=== PATIENT | female | born 1995 | race African-American/Black ===

== ENCOUNTER 2021-06-15 05:19 | Emergency (ER) | payer BC, MEDICAID ==
[~2021-06-15] VITALS: Ht 170.2 cm; Wt 69.4 kg
[2021-06-15 06:33] LABS: Urine Bacteria FEW /hpf (None Seen); Urine Blood 2+ /uL (Negative); Urine Mucus FEW (None Seen); Urine Specific Gravity 1.014 (1.001-1.035); Urine WBC 5 /hpf (0 - 5)
[2021-06-15 07:08] LABS: Basophils # (auto) 0 10 ^3/uL (0-0.2); Basophils % (auto) 0.9 % (0.0-2.0); Eosinophils # (auto) 0.1 10 ^3/uL (0-0.8); Lymphocytes # (auto) 1.6 10 ^3/uL (0.4-5.4); Mean Corpuscular Hemoglobin 25.6 pg (28.0-32.0); Monocytes # (auto) 0.4 10 ^3/uL (0-1.3)
[2021-06-15 07:10] LABS: Eosinophils % (auto) 1.4 % (0.0-7.0); Hematocrit 33.2 % (36.0-46.0); Lymphocytes % (auto) 32.3 % (10.0-50.0); Mean Corpuscular Hgb Conc. 33.2 g/dL (32.0-36.0); Monocytes % (auto) 7.7 % (0.0-12.0); Neutrophils # (auto) 2.9 10 ^3/uL (1.6-8.6); Neutrophils % (auto) 57.7 % (37.0-80.0); Nucleated Red Blood Cells % 0.1 %; Red Blood Cells 4.32 10^6/uL (4.0-5.20); Red Cell Distribution Width 17.6 % (11.8-14.3)
[2021-06-15 07:32] LABS: Albumin 3.3 g/dL (3.4-5.0); Calcium 9.1 mg/dL (8.5-10.1); Potassium 3.6 mmol/L (3.5-5.1)
[2021-06-15 07:38] LABS: BUN/Creatinine Ratio 20.5; Bilirubin, Total 0.2 mg/dL (0.2-1.0); Total Protein 7.2 g/dL (6.4-8.2)
[2021-06-15 07:57] VITALS: BP 115/63
== END 2021-06-15 07:55 | disposition home or self-care (01) ==
LOC: ER 05:19
DX: O20.8 Other hemorrhage in early pregnancy (principal); Z86.2 Personal history of diseases of the blood and blood-forming organs and certain disorders involving the immune mechanism; Z3A.16 16 weeks gestation of pregnancy
CPT/HCPCS: 36415; 76805; 80053; 81001; 84702; 85025

== ENCOUNTER 2021-09-13 08:45 | Observation (INO) | payer MEDICAID ==
[2021-09-13] MEDS ORDERED: PREN-96 PO (09:52)
== END 2021-09-13 10:37 | disposition home or self-care (01) ==
LOC: LDRP 08:45
PROVIDERS: ADMIT Obstetrics & Gynecology Obstetrics; ATTEND Obstetrics & Gynecology Obstetrics
DX: O26.893 Other specified pregnancy related conditions, third trimester (principal); R10.31 Right lower quadrant pain; Z3A.29 29 weeks gestation of pregnancy
CPT/HCPCS: 59025; 81002; 94760; G0378; G0379

== ENCOUNTER 2021-10-01 11:05 | Observation (INO) | payer MEDICAID ==
[~2021-10-01 11:05] MED LIST: PREN-96 PO
== END 2021-10-01 11:48 | disposition home or self-care (01) ==
LOC: LDRP 11:05
PROVIDERS: ADMIT Obstetrics & Gynecology; ATTEND Obstetrics & Gynecology
DX: O23.43 Unspecified infection of urinary tract in pregnancy, third trimester (principal); O26.893 Other specified pregnancy related conditions, third trimester; N89.8 Other specified noninflammatory disorders of vagina; Z3A.31 31 weeks gestation of pregnancy
CPT/HCPCS: 59025; 81002; 94760; G0378; G0379

== ENCOUNTER 2021-11-07 01:28 | Observation (INO) | payer MEDICAID ==
[~2021-11-07] VITALS: Ht 170.2 cm; Wt 83.5 kg
[2021-11-07 02:27] LABS: Urine Bacteria FEW /hpf (None Seen); Urine Blood TRACE /uL (Negative); Urine Hyaline Cast FEW /lpf (0 - 2); Urine Mucus FEW (None Seen); Urine Specific Gravity 1.015 (1.001-1.035); Urine WBC 27 /hpf (0 - 5)
[2021-11-07] MEDS ORDERED: TERBUTALINE SULFATE 1 MG/ML 1ML VIAL SC SCH (04:00)
== END 2021-11-07 05:14 | disposition home or self-care (01) ==
LOC: LDRP 01:28
PROVIDERS: ADMIT Obstetrics & Gynecology; ATTEND Obstetrics & Gynecology
DX: O62.9 Abnormality of forces of labor, unspecified (principal); O34.63 Maternal care for abnormality of vagina, third trimester; N89.8 Other specified noninflammatory disorders of vagina; O26.893 Other specified pregnancy related conditions, third trimester; R11.0 Nausea; R68.83 Chills (without fever); O99.323 Drug use complicating pregnancy, third trimester; F12.90 Cannabis use, unspecified, uncomplicated; Z3A.36 36 weeks gestation of pregnancy
CPT/HCPCS: 59025; 81001; 81002; 96372; G0378; G0379; J3105; 96375

== ENCOUNTER 2021-11-24 18:25 | Observation (INO) | payer MEDICAID ==
[~2021-11-24] VITALS: Ht 170.2 cm; Wt 85.3 kg
[2021-11-24] MEDS ORDERED: FERR-7 PO (19:34)
== END 2021-11-24 19:47 | disposition home or self-care (01) ==
LOC: LDRP 18:25
PROVIDERS: ADMIT Obstetrics & Gynecology; ATTEND Obstetrics & Gynecology
DX: O62.9 Abnormality of forces of labor, unspecified (principal); Z3A.39 39 weeks gestation of pregnancy
CPT/HCPCS: 59025; 81002; G0378

== ENCOUNTER 2021-11-26 08:58 | Observation (INO) | payer MEDICAID ==
[~2021-11-26 08:58] MED LIST changes: +FERR-7 PO
== END 2021-11-26 11:23 | disposition home or self-care (01) ==
LOC: LDRP 08:58
PROVIDERS: ADMIT Obstetrics & Gynecology; ATTEND Obstetrics & Gynecology
DX: O62.9 Abnormality of forces of labor, unspecified (principal); Z3A.39 39 weeks gestation of pregnancy
CPT/HCPCS: 59025; 81002; 94760; G0378

== ENCOUNTER 2021-11-26 14:50 | Inpatient (IN) | payer MEDICAID ==
[~2021-11-26] VITALS: Ht 170.2 cm; Wt 85.3 kg
[2021-11-26] MEDS ORDERED: LACTATED RINGER'S 1,000 ML IV SCH (22:30)
[2021-11-26] MEDS ORDERED: LIDOCAINE 2%HCL (LOCAL ANESTH.) INJ 20ML MDV IJ PRN (22:30)
[2021-11-26] MEDS ORDERED: DERMOPLAST 60ML BOTTLE TOP PRN (22:30)
[2021-11-26] MEDS ORDERED: BUTORPHANOL TARTRATE 2 MG/1 ML VIAL IV PRN ×2 (22:30)
[2021-11-26] MEDS ORDERED: PROMETHAZINE HCL 25 MG/ML 1ML IM PRN (22:30)
[2021-11-26] MEDS ORDERED: PHISODERM TOP SOLN 240ML BTL TOP PRN (22:30)
[2021-11-26] MEDS ORDERED: WITCH HAZEL-GLYCERIN PAD TOP PRN (22:30)
[2021-11-26] MEDS ORDERED: LACT. RINGERS/OXYTOCIN 20UNITS 500 ML IV ONE ×2 (22:45→23:15)
[2021-11-26 22:59] LABS: Urine Bacteria NONE SEEN /hpf (None Seen); Urine Blood 2+ /uL (Negative); Urine Specific Gravity 1.011 (1.001-1.035); Urine WBC 8 /hpf (0 - 5)
[2021-11-26 23:09] LABS: Basophils # (auto) 0 10 ^3/uL (0-0.2); Basophils % (auto) 0.3 % (0.0-2.0); Eosinophils # (auto) 0 10 ^3/uL (0-0.8); Eosinophils % (auto) 0.6 % (0.0-7.0); Hematocrit 36.3 % (36.0-46.0); Hemoglobin 11.6 g/dL (12.2-16.2); Lymphocytes # (auto) 2.2 10 ^3/uL (0.4-5.4); Lymphocytes % (auto) 31.3 % (10.0-50.0); Mean Corpuscular Hemoglobin 25.7 pg (28.0-32.0); Mean Corpuscular Hgb Conc. 32.1 g/dL (32.0-36.0); Mean Corpuscular Volume 80.3 fL (80.0-100.0); Monocytes # (auto) 0.6 10 ^3/uL (0-1.3); Monocytes % (auto) 8.7 % (0.0-12.0); Neutrophils # (auto) 4.1 10 ^3/uL (1.6-8.6); Neutrophils % (auto) 59.1 % (37.0-80.0); Nucleated Red Blood Cells % 0.1 %; Red Blood Cells 4.52 10^6/uL (4.0-5.20); Red Cell Distribution Width 14.4 % (11.8-14.3); White Blood Cell 6.9 10^3/uL (4.4-10.8)
[2021-11-26 23:13] LABS: Alcohol, Urine < 3.0 mg/dL (0-10); Amphetamine Screen, Urine NEGATIVE (NEGATIVE); Barbiturate Scree,Urine NEGATIVE (NEGATIVE); Benzodiazephine Screen, Urine NEGATIVE (NEGATIVE); Cannabinoid Screen, Urine NEGATIVE (NEGATIVE); Cocaine Screen, Urine NEGATIVE (NEGATIVE); Opiate Scree,Urine NEGATIVE (NEGATIVE); Phencyclidine Screen, Urine NEGATIVE (NEGATIVE)
[2021-11-26 23:22] LABS: INR 0.94 (0.9-1.15); Partial Thromboplastin Time 28.5 sec (23.6-33.0)
[2021-11-26 23:26] LABS: Albumin 2.8 g/dL (3.4-5.0); Calcium 8.9 mg/dL (8.5-10.1); Potassium 3.8 mmol/L (3.5-5.1)
[2021-11-26 23:30] LABS: BUN/Creatinine Ratio 13.6; Bilirubin, Total 0.2 mg/dL (0.2-1.0); Total Protein 6.6 g/dL (6.4-8.2)
[2021-11-27] VITALS (7 sets, daily range): BP systolic 92–128; BP diastolic 52–83
[2021-11-27] MEDS ORDERED: ACETAMINOPHEN 325 MG TAB PO PRN (00:45)
[2021-11-27] MEDS ORDERED: IBUPROFEN 800 MG TAB PO SCH (00:45)
[2021-11-27] MEDS ORDERED: ONDANSETRON ODT 4 MG TAB PO PRN (00:45)
[2021-11-27] MEDS ORDERED: TETANUS-DIPTH-ACEL PERTUSSIS 0.5ML SYR Tdap IM ONE (02:30)
[2021-11-27] MEDS: IBUPROFEN 600 MG TAB PO PRN (18:53)
[2021-11-28 02:32] VITALS: BP 107/70
[2021-11-28 07:00] VITALS: BP 114/75
[2021-11-28] MEDS: IBUPROFEN 600 MG TAB PO PRN (07:33)
[2021-11-28 08:06] LABS: RPR Non Reactive (Non Reactive)
[2021-11-28 11:00] VITALS: BP 110/69
[2021-11-28] MEDS ORDERED: TETANUS-DIPTH-ACEL PERTUSSIS 0.5ML SYR Tdap IM ONE (11:45)
== END 2021-11-28 12:32 | disposition home or self-care (01) | DRG 560 ==
LOC: EDSTATUS 14:50 → UNDOADMOB 20:01 → LDRP 20:01 → OBSVTOIN 20:20 → INTOOBSV 20:20 → LDRP 22:26 → UNDODISIN 11-28 12:32
PROVIDERS: ADMIT Obstetrics & Gynecology; ATTEND Obstetrics & Gynecology
PROC: 10907ZC Drainage of Amniotic Fluid, Therapeutic from Products of Conception, Via Natural or Artificial Opening (ICD-10-PCS; 2021-11-26)
PROC: 10D07Z6 Extraction of Products of Conception, Vacuum, Via Natural or Artificial Opening (ICD-10-PCS; principal; 2021-11-27)
DX: O80 Encounter for full-term uncomplicated delivery (principal); Z37.0 Single live birth; Z20.822 Contact with and (suspected) exposure to COVID-19; Z3A.39 39 weeks gestation of pregnancy
CPT/HCPCS: 36415; 59025; 59409; 80053; 80307; 81001; 81002; 85025; 85610; 85730; 86592; 86850; 86870; 86900; 86901; 87426; 90715; 94760; 96360; 96361; 96365; 96366; 96372; 96374; G0378; J2590

== ENCOUNTER 2022-11-16 12:07 | Emergency (ER) | payer MEDICAID ==
[~2022-11-16] VITALS: Ht 170.2 cm; Wt 79.0 kg
[2022-11-16 13:59] VITALS: BP 146/80
[2022-11-16 14:51] LABS: Urine Bacteria FEW /hpf (None Seen); Urine Blood 1+ /uL (Negative); Urine Mucus FEW (None Seen); Urine Specific Gravity 1.025 (1.001-1.035); Urine WBC 12 /hpf (0 - 5)
[2022-11-16] MEDS ORDERED: NITR-87 PO (17:25)
[2022-11-16] MEDS ORDERED: PROM1SOL4 PO (17:25)
== END 2022-11-16 17:35 | disposition home or self-care (01) ==
LOC: ER 12:07
DX: O99.511 Diseases of the respiratory system complicating pregnancy, first trimester (principal); J06.9 Acute upper respiratory infection, unspecified; O23.41 Unspecified infection of urinary tract in pregnancy, first trimester; N39.0 Urinary tract infection, site not specified; Z79.899 Other long term (current) drug therapy; Z3A.08 8 weeks gestation of pregnancy; Z20.822 Contact with and (suspected) exposure to COVID-19
CPT/HCPCS: 36415; 76801; 81001; 84702; 87426

== ENCOUNTER 2023-03-16 21:06 | Observation (INO) | payer MEDICAID ==
[~2023-03-16] VITALS: Ht 170.2 cm; Wt 77.6 kg
[~2023-03-16 21:06] MED LIST changes: +NITR-87 PO; +PROM1SOL4 PO
[2023-03-16] MEDS ORDERED: NITR-87 PO (22:35)
== END 2023-03-16 22:47 | disposition home or self-care (01) ==
LOC: LDRP 21:06
PROVIDERS: ADMIT Obstetrics & Gynecology; ATTEND Obstetrics & Gynecology
DX: O23.42 Unspecified infection of urinary tract in pregnancy, second trimester (principal); O32.2XX0 Maternal care for transverse and oblique lie, not applicable or unspecified; O26.892 Other specified pregnancy related conditions, second trimester; R10.9 Unspecified abdominal pain; Z3A.25 25 weeks gestation of pregnancy; Z87.891 Personal history of nicotine dependence
CPT/HCPCS: 76815; 81002; 87210; 94760; G0378

== ENCOUNTER 2023-05-16 20:42 | Observation (INO) | payer MEDICAID ==
[~2023-05-16 20:42] MED LIST changes: -PROM1SOL4 PO
[2023-05-16 22:04] LABS: Urine Bacteria NONE SEEN /hpf (None Seen); Urine Blood 1+ /uL (Negative); Urine Specific Gravity 1.011 (1.001-1.035); Urine WBC 11 /hpf (0 - 5)
== END 2023-05-16 22:55 | disposition home or self-care (01) ==
LOC: LDRP 20:42
PROVIDERS: ADMIT Obstetrics & Gynecology; ATTEND Obstetrics & Gynecology
DX: O23.43 Unspecified infection of urinary tract in pregnancy, third trimester (principal); O26.893 Other specified pregnancy related conditions, third trimester; R10.9 Unspecified abdominal pain; Z3A.33 33 weeks gestation of pregnancy
CPT/HCPCS: 59025; 76818; 81001; 81002; 87086; 94760; G0378

== ENCOUNTER 2023-06-26 22:48 | Observation (INO) | payer MEDICAID | END 2023-06-27 00:12 | disposition home or self-care (01) | LOC: LDRP 22:48 | PROVIDERS: ADMIT Obstetrics & Gynecology; ATTEND Obstetrics & Gynecology | DX: O62.9 Abnormality of forces of labor, unspecified (principal); Z3A.39 39 weeks gestation of pregnancy | CPT/HCPCS: 59025; 81002; 94760; G0378 ==

== ENCOUNTER 2023-06-29 14:05 | Observation (INO) | payer MEDICAID | END 2023-06-29 16:30 | disposition home or self-care (01) | LOC: UNDOADMOB 14:05 → LDRP 14:05 | PROVIDERS: ADMIT Obstetrics & Gynecology; ATTEND Obstetrics & Gynecology | DX: O62.9 Abnormality of forces of labor, unspecified (principal); O99.891 Other specified diseases and conditions complicating pregnancy; M54.9 Dorsalgia, unspecified; Z3A.39 39 weeks gestation of pregnancy | CPT/HCPCS: 59025; 76818; 81002; G0378 ==